=== PATIENT | female | born 2000 | race Caucasian/White ===

== ENCOUNTER 2020-07-29 17:44 | Observation (INO) | payer BC, OTHER ==
[~2020-07-29] VITALS: Ht 160 cm; Wt 65.5 kg
[2020-07-29 18:03] LABS: BILIRUBIN,URINE NEGATIVE (NEGATIVE); CLARITY,URINE CLEAR; COLOR,URINE YELLOW; GLUCOSE, URINE (UA) NEGATIVE (NEGATIVE); KETONES,URINE NEGATIVE (NEGATIVE); LEUKOCYTE ESTERASE ,URINE TRACE (NEGATIVE); NITRITE,URINE NEGATIVE (NEGATIVE); PROTEIN,URINE NEGATIVE (NEGATIVE)
[2020-07-29 18:07] LABS: BACTERIA,URINE FEW /HPF
[2020-07-29 18:08] LABS: BASOPHILS % (AUTO) 0 % (0-10); EOSINOPHILS # (AUTO) 0.1 10^3/uL (0.0-0.3); EOSINOPHILS % (AUTO) 1 % (0-10); HEMATOCRIT 39 % (35-52); HEMOGLOBIN 13.4 g/dL (11.5-16.0); LYMPHOCYTES # (AUTO) 2.2 10^3/uL (1.0-4.0); LYMPHOCYTES % (AUTO) 17 % (12-44); MEAN CORPUSCULAR HEMOGLOBIN 32 pg (25-34); MEAN CORPUSCULAR HGB CONC 35 g/dL (32-36); MEAN CORPUSCULAR VOLUME 92 fL (80-99); MEAN PLATELET VOLUME 9.1 fL (9.0-12.2); MONOCYTES # (AUTO) 0.7 10^3/uL (0.0-1.0); MONOCYTES % (AUTO) 5 % (0-12); NEUTROPHILS # (AUTO) 9.9 10^3/uL (1.8-7.8); NEUTROPHILS % (AUTO) 77 % (42-75); PLATELET COUNT 299 10^3/uL (130-400); WHITE BLOOD COUNT 12.9 10^3/uL (4.3-11.0)
--- NOTE | 2020-07-29 18:08 | ED Abdominal Pain ---
General Chief Complaint: Abdominal/GI Problems Stated Complaint: ABDOMINAL PAIN Source of Information: Patient Exam Limitations: No Limitations History of Present Illness Date Seen by Provider: Jul 29, 2020 Time Seen by Provider: 17:55 Initial Comments Patient presents ER by private conveyance with chief complaint of 5 days progressive abdominal pain starting at around her umbilicus and now migrating down the last day to her right lower quadrant. She had a UTI about a week ago and was treated with antibiotics and got over that. Her last vaginal. Starts today. She says the pain is consistent, 7 out of 10 but does not want anything for it. She took Tylenol for earlier today. She's not having any fevers or chills. No cough shortness of air. She went to the walk-in clinic today and they ran a urinalysis on her and told her that it was normal and insisted she come to the ER. Patient has no history of abdominal surgeries or medical history. No significant family medical history. She does not smoke drink or use drugs. Allergies and Home Medications Allergies Coded Allergies: No Known Drug Allergies (Unverified , 07/29/20) Patient Home Medication List Home Medication List Reviewed: Yes Review of Systems Review of Systems Constitutional: No chills, No fever EENTM: No Blurred Vision, No Double Vision Respiratory: Denies Cough, Denies Shortness of Air Cardiovascular: Denies Chest Pain, Denies Lightheadedness Gastrointestinal: Denies Abdominal Pain, Denies Constipated, Denies Diarrhea, Denies Nausea Genitourinary: Denies Burning, Denies Drainage Musculoskeletal: No back pain, No joint pain Skin: No change in color, No dryness Psychiatric/Neurological: Denies Anxiety, Denies Depressed All Other Systems Reviewed Negative Unless Noted: Yes Past Fldwaiz-Lcgpyq-Smajjt Hx Patient Social History Alcohol Use: Denies Use Recreational Drug Use: No Smoking Status: Never a Smoker Recent Foreign Travel: No Contact w/Someone Who Travel: No Physical Exam Vital Signs Vital Signs - First Documented 07/29/20 17:48 Temp 36.9 Pulse 95 Resp 18 B/P (MAP) 135/86 (102) Pulse Ox 98 Capillary Refill : Height/Weight/BMI Height: '" Weight: lbs. oz. kg; BMI Method: General Appearance: WD/WN, mild distress HEENT: PERRL/EOMI, pharynx normal Respiratory: no respiratory distress, no accessory muscle use Cardiovascular: normal peripheral pulses, regular rate, rhythm Peripheral Pulses: 2+ Radial Pulses (R), 2+ Radial Pulses (L) Gastrointestinal: normal bowel sounds, rebound, tenderness (right lower quadrant with rebound tenderness), other (or Rovsing sign positive, negative for Bueno's sign. McBurney's point tenderness. Right-sided psoa's tenderness on leg raise) Neurologic/Psychiatric: alert, normal mood/affect Skin: normal color, warm/dry Progress/Results/Core Measures Results/Orders Lab Results Laboratory Tests Test 07/29/20 17:57 07/29/20 18:00 Range/Units Urine Color YELLOW Urine Clarity CLEAR Urine pH 6.0 5-9 Urine Specific Colon 1.015 L 1.016-1.022 Urine Protein NEGATIVE NEGATIVE Urine Glucose (UA) NEGATIVE NEGATIVE Urine Ketones NEGATIVE NEGATIVE Urine Nitrite NEGATIVE NEGATIVE Urine Bilirubin NEGATIVE NEGATIVE Urine Urobilinogen 0.2 < = 1.0 MG/DL Urine Leukocyte Esterase TRACE H NEGATIVE Urine RBC (Auto) NEGATIVE NEGATIVE Urine RBC NONE /HPF Urine WBC 2-5 /HPF Urine Squamous Epithelial Cells 10-25 H /HPF Urine Crystals NONE /LPF Urine Bacteria FEW H /HPF Urine Casts NONE /LPF Urine Mucus NEGATIVE /LPF Urine Culture Indicated YES White Blood Count 12.9 H 4.3-11.0 10^3/uL Red Blood Count 4.20 3.80-5.11 10^6/uL Hemoglobin 13.4 11.5-16.0 g/dL Hematocrit 39 35-52 % Mean Corpuscular Volume 92 80-99 fL Mean Corpuscular Hemoglobin 32 25-34 pg Mean Corpuscular Hemoglobin Concent 35 32-36 g/dL Red Cell Distribution Width 11.7 10.0-14.5 % Platelet Count 299 130-400 10^3/uL Mean Platelet Volume 9.1 9.0-12.2 fL Immature Granulocyte % (Auto) 0 % Neutrophils (%) (Auto) 77 H 42-75 % Lymphocytes (%) (Auto) 17 12-44 % Monocytes (%) (Auto) 5 0-12 % Eosinophils (%) (Auto) 1 0-10 % Basophils (%) (Auto) 0 0-10 % Neutrophils # (Auto) 9.9 H 1.8-7.8 10^3/uL Lymphocytes # (Auto) 2.2 1.0-4.0 10^3/uL Monocytes # (Auto) 0.7 0.0-1.0 10^3/uL Eosinophils # (Auto) 0.1 0.0-0.3 10^3/uL Basophils # (Auto) 0.0 0.0-0.1 10^3/uL Immature Granulocyte # (Auto) 0.0 0.0-0.1 10^3/uL Sodium Level 139 135-145 MMOL/L Potassium Level 3.7 3.6-5.0 MMOL/L Chloride Level 105 98-107 MMOL/L Carbon Dioxide Level 20 L 21-32 MMOL/L Anion Gap 14 5-14 MMOL/L Blood Urea Nitrogen 9 7-18 MG/DL Creatinine 0.75 0.60-1.30 MG/DL Estimat Glomerular Filtration Rate > 60 BUN/Creatinine Ratio 12 Glucose Level 105 70-105 MG/DL Calcium Level 9.2 8.5-10.1 MG/DL Corrected Calcium 8.9 8.5-10.1 MG/DL Total Bilirubin 0.6 0.1-1.0 MG/DL Aspartate Amino Transf (AST/SGOT) 20 5-34 U/L Alanine Aminotransferase (ALT/SGPT) 17 0-55 U/L Alkaline Phosphatase 82 40-136 U/L Total Protein 7.9 6.4-8.2 GM/DL Albumin 4.4 3.2-4.5 GM/DL Serum Test, Qualitative NEGATIVE NEGATIVE My Orders Orders - CAL PUCKETT Ed Iv/Invasive Line Start (07/29/20 18:16) Lactated Ringers (Lr 1000 Ml Iv Solution (07/29/20 18:16) Iohexol Injection (Omnipaque 350 Mg/Ml 1 (07/29/20 18:30) Received Contrast (Hold Metformin- Contr (07/29/20 18:30) Ns (Ivpb) (Sodium Chloride 0.9% Ivpb Bag (07/29/20 18:30) Ciprofloxacin Iv 400mg/200ml (Cipro Iv S (07/29/20 19:00) Metronidazole 500mg/100ml Ivpb (Flagyl 5 (07/29/20 19:00) Blood Culture (07/29/20 18:56) Protime With Inr (07/29/20 18:56) Partial Thromboplastin Time (07/29/20 18:56) Medications Given in ED Current Medications Medications Dose Ordered Sig/Anitha Route Start Time Stop Time Status Last Admin Dose Admin Iohexol 100 ml ONCE ONCE IV 07/29/20 18:30 07/29/20 18:31 DC 07/29/20 18:36 87 ML Lactated Ringer's 1,000 ml @ 0 mls/hr Q0M ONCE IV 07/29/20 18:16 07/29/20 18:17 DC 07/29/20 18:45 1,000 MLS/HR Sodium Chloride 100 ml ONCE ONCE IV 07/29/20 18:30 07/29/20 18:31 DC 07/29/20 18:36 80 ML Vital Signs/I&O 07/29/20 17:48 Temp 36.9 Pulse 95 Resp 18 B/P (MAP) 135/86 (102) Pulse Ox 98 Progress Progress Note : Time: 18:10 Progress Note Suspicion for appendicitis, colitis, mesenteric adenitis, gynecologic follicular cyst etc. liter of lactated Ringer's, CT with IV contrast of the abdomen and pelvis. The patient declines anything for pain this time. Diagnostic Imaging Diagonstic Imaging: CT Plain Films/CT/US/NM/MRI: abdomen, pelvis Comments NAME: MITCHELL KAMARA [facility] REC#: [id number] PT STATUS: REG ER : 2000 PHYSICIAN: ROSA GAMBINO APRN ADMIT DATE: 07/29/20/ER Draft Date of Exam:07/29/20 CT ABD/PELV W (APPENDICITIS) EXAMINATION: CT abdomen and pelvis with intravenous contrast. TECHNIQUE: Multiple contiguous axial images were obtained through the abdomen and pelvis after the uneventful administration of intravenous contrast. All CT scans use one or more of the following dose optimizing techniques: automated exposure control, MA and/or KvP adjustment based on patient size and exam type or iterative reconstruction. HISTORY: Abdominal pain. COMPARISON: None available. FINDINGS: The heart is unremarkable. The included lung bases are clear. The liver, spleen, pancreas, adrenal glands, and kidneys have a normal appearance. There is no pathologically enlarged mesenteric or retroperitoneal adenopathy. The bowel loops are nondilated. The appendix is dilated and fluid-filled measuring 1.8 cm. An appendicolith is seen in the neck of the appendix. Surrounding free fluid is noted in the right paracolic gutter. No loculated collection is seen. There is no free fluid or free air. No acute osseous abnormalities. Ureters and bladder are grossly normal. There is no free air, loculated collection, or adenopathy in the pelvis. IMPRESSION: Acute appendicitis with a small amount of free fluid in the right paracolic gutter. No evidence of abscess or free air. No bowel obstruction. Dictated on workstation # [id number] Dict: 07/29/20 1842 Trans: 07/29/201849 [facility] [id number] Interpreted by: JAMAL IGNACIO DO Electronically signed by: Reviewed: Reviewed by Me Departure Communication (Admissions) Time/Spoke to Admitting Phy: 18:45 Discussed the case with Dr. Cruz, general surgery and he agrees to observe the patient overnight on a clear liquid diet until 2:00 in the morning then nothing by mouth. He would like Cipro and Flagyl. Impression Primary Impression: Appendicitis Qualified Codes: K35.30 - Acute appendicitis with localized peritonitis, without perforation or gangrene Disposition: ADMITTED INPATIENT Condition: Stable Admissions Decision to Admit Reason: Admit from ER (General) Decision to Admit/Date: Jul 29, 2020 Time/Decision to Admit Time: 18:47 CAL PUCKETT Jul 29, 2020 18:08
[2020-07-29] MEDS ORDERED: LACTATED RINGERS 1,000 ML IV ONE ×2 (18:16→22:31)
[2020-07-29 18:22] LABS: ALBUMIN 4.4 GM/DL (3.2-4.5)
[2020-07-29 18:23] LABS: CHLORIDE 105 MMOL/L (98-107); POTASSIUM 3.7 MMOL/L (3.6-5.0); SODIUM 139 MMOL/L (135-145)
[2020-07-29 18:24] LABS: CALCIUM 9.2 MG/DL (8.5-10.1)
[2020-07-29 18:25] LABS: GLUCOSE 105 MG/DL (70-105); TOTAL PROTEIN 7.9 GM/DL (6.4-8.2)
[2020-07-29 18:26] LABS: CARBON DIOXIDE 20 MMOL/L (21-32)
[2020-07-29 18:27] LABS: BILIRUBIN,TOTAL 0.6 MG/DL (0.1-1.0)
[2020-07-29 18:28] LABS: ALKALINE PHOSPHATASE 82 U/L (40-136)
[2020-07-29 18:29] LABS: CREATININE SERUM 0.75 MG/DL (0.60-1.30); GFR ESTIMATED > 60
[2020-07-29 18:30] LABS: BUN/CREATININE RATIO 12
[2020-07-29] MEDS ORDERED: NS 100 ML (IVPB) BAG IV ONE (18:30)
[2020-07-29] MEDS ORDERED: HOLD METFORMIN - RECEIVED CONTRAST 20 ML VIAL IV SCH (18:30)
[2020-07-29] MEDS ORDERED: IOHEXOL 350 MG/ML 100 ML (OMNIPAQUE 350) VIAL IV ONE (18:30)
[2020-07-29 18:31] LABS: ALANINE AMINOTRANSFERASE 17 U/L (0-55)
--- NOTE | 2020-07-29 18:50 | Diagnostic Imaging Report ---
EXAMINATION: CT abdomen and pelvis with intravenous contrast. TECHNIQUE: Multiple contiguous axial images were obtained through the abdomen and pelvis after the uneventful administration of intravenous contrast. All CT scans use one or more of the following dose optimizing techniques: automated exposure control, MA and/or KvP adjustment based on patient size and exam type or iterative reconstruction. HISTORY: Abdominal pain. COMPARISON: None available. FINDINGS: The heart is unremarkable. The included lung bases are clear. The liver, spleen, pancreas, adrenal glands, and kidneys have a normal appearance. There is no pathologically enlarged mesenteric or retroperitoneal adenopathy. The bowel loops are nondilated. The appendix is dilated and fluid-filled measuring 1.8 cm. An appendicolith is seen in the neck of the appendix. Surrounding free fluid is noted in the right paracolic gutter. No loculated collection is seen. There is no free fluid or free air. No acute osseous abnormalities. Ureters and bladder are grossly normal. There is no free air, loculated collection, or adenopathy in the pelvis. IMPRESSION: Acute appendicitis with a small amount of free fluid in the right paracolic gutter. No evidence of abscess or free air. No bowel obstruction. Dictated by: Dictated on workstation # [id number]
[2020-07-29] MEDS ORDERED: metroNIDAZOLE 500MG/100ML IVPB 100 ML IV ONE (19:00)
[2020-07-29] MEDS ORDERED: CIPROFLOXACIN IV 400MG/200ML 200 ML IV ONE (19:00)
[2020-07-29 19:07] LABS: INR 0.9 (0.8-1.4); PROTHROMBIN TIME PATIENT 12.5 SEC (12.2-14.7)
--- NOTE | 2020-07-29 20:32 | Progress Note-Pre Operative ---
Pre-Operative Progress Note H&P Reviewed The H&P was reviewed, patient examined and no changes noted. Date Seen by Provider: Jul 29, 2020 Time Seen by Provider: 18:30 Date H&P Reviewed: Jul 29, 2020 Time H&P Reviewed: 18:30 Pre-Operative Diagnosis: acute appenditis ANTONIETA FERRARO MD Jul 29, 2020 20:32
--- NOTE | 2020-07-29 21:00 | HISTORY AND PHYSICAL ---
DATE OF SERVICE: HISTORY OF PRESENT ILLNESS: The patient is a 19-year-old female, who presented to [facility] Emergency Department with a 5-day history of abdominal pain. She reports that the pain was periumbilical initially; however, became more localized towards the right lower abdominal quadrant. She does not report any nausea, no vomiting as well as no diarrhea or constipation. She also does not report any fever or chills. A CT scan was performed, which did show appendicitis; however, no perforation. PAST MEDICAL HISTORY: Urinary tract infection. PAST SURGICAL HISTORY: None. ALLERGIES: No known drug allergies. MEDICATIONS: None. SOCIAL HISTORY: Negative smoke, negative alcohol. FAMILY HISTORY: Noncontributory. VITAL SIGNS: Temperature 36.9, blood pressure 135/86, pulse 95, respirations 18, pulse ox 93% on room air. REVIEW OF SYSTEMS: Well-nourished female, currently guarded secondary to abdominal pain. She is not experiencing any shortness of breath or difficulty breathing as well as no cough or sputum production. No nausea or vomiting. No chest pain, palpitations or diaphoresis. No diarrhea or constipation. No red blood per rectum, no dark tarry stools. No fever, chills, no recent inadvertent weight loss. All other review of systems negative. PHYSICAL EXAMINATION: CHEST: Clear. Good breath sounds bilaterally. HEART: Regular, no murmurs. EXTREMITIES: No lower extremity edema, negative Homans sign. HEENT: No scleral icterus. NECK: No cervical lymphadenopathy. ABDOMEN: Soft, nondistended. There is pain in the right lower abdominal quadrant at McBurney's point with voluntary guarding, no rebound. SKIN: Warm, dry. LABORATORY DATA: WBC 12.9, hemoglobin 13.4, hematocrit 39, platelets 299. Urinalysis positive for trace leukocyte esterase as well as bacteria. ASSESSMENT AND PLAN: A 19-year-old female with acute appendicitis. We will start IV antibiotics as well as fluid hydration as well as adequate pain control and proceed with laparoscopic appendectomy on this admission. Job ID: [id number] DocumentID: [id number] Dictated Date: 07/29/2020 20:51:31 Veneer Taping Machine Offbearer Date: 07/29/2020 20:59:43 Dictated By: ANTONIETA FERRARO MD
[2020-07-29 22:30] VITALS: BP 131/85
[2020-07-29] MEDS ORDERED: fentaNYL INJECTION 100 MCG/2 ML AMP IV PRN ×2 (23:00)
[2020-07-29] MEDS ORDERED: ACETAMINOPHEN 325 MG TABLET PO PRN (23:00)
[2020-07-29] MEDS ORDERED: ACETAMINOPHEN 650 MG SUPP (TYLENOL) PR PRN (23:00)
[2020-07-29] MEDS ORDERED: KETOROLAC 15 MG/ML VIAL IV PRN (23:00)
[2020-07-29] MEDS ORDERED: ONDANSETRON 4 MG/2 ML (SDV) Z0FRAN IVP PRN (23:00)
[2020-07-29] MEDS: LACTATED RINGERS 1,000 ML IV SCH (23:05)
[2020-07-30] VITALS (11 sets, daily range): BP systolic 107–143; BP diastolic 66–85
[2020-07-30] MEDS ORDERED: LACTATED RINGERS 1,000 ML IV PRN (07:01)
[2020-07-30 07:08] LABS: BASOPHILS % (AUTO) 0 % (0-10); EOSINOPHILS # (AUTO) 0.1 10^3/uL (0.0-0.3); EOSINOPHILS % (AUTO) 1 % (0-10); HEMATOCRIT 34 % (35-52); HEMOGLOBIN 11.5 g/dL (11.5-16.0); LYMPHOCYTES # (AUTO) 3.3 10^3/uL (1.0-4.0); LYMPHOCYTES % (AUTO) 31 % (12-44); MEAN CORPUSCULAR HEMOGLOBIN 32 pg (25-34); MEAN CORPUSCULAR HGB CONC 34 g/dL (32-36); MEAN CORPUSCULAR VOLUME 93 fL (80-99); MEAN PLATELET VOLUME 9.3 fL (9.0-12.2); MONOCYTES # (AUTO) 0.8 10^3/uL (0.0-1.0); MONOCYTES % (AUTO) 8 % (0-12); NEUTROPHILS # (AUTO) 6.4 10^3/uL (1.8-7.8); NEUTROPHILS % (AUTO) 60 % (42-75); PLATELET COUNT 251 10^3/uL (130-400); WHITE BLOOD COUNT 10.7 10^3/uL (4.3-11.0)
[2020-07-30] MEDS ORDERED: FLU QUADRIvalent (3YOA+) 60 mcg/0.5 ml 2020-21 (AFLURIA) IM ONE (07:15)
[2020-07-30 07:30] LABS: ALANINE AMINOTRANSFERASE 14 U/L (0-55); ALBUMIN 3.5 GM/DL (3.2-4.5); ALKALINE PHOSPHATASE 70 U/L (40-136); BILIRUBIN,TOTAL 0.7 MG/DL (0.1-1.0); BUN/CREATININE RATIO 9; CALCIUM 8.4 MG/DL (8.5-10.1); CARBON DIOXIDE 22 MMOL/L (21-32); CHLORIDE 108 MMOL/L (98-107); CREATININE SERUM 0.67 MG/DL (0.60-1.30); GFR ESTIMATED > 60; GLUCOSE 97 MG/DL (70-105); POTASSIUM 3.6 MMOL/L (3.6-5.0); SODIUM 140 MMOL/L (135-145); TOTAL PROTEIN 6.1 GM/DL (6.4-8.2)
[2020-07-30] MEDS: LACTATED RINGERS 1,000 ML IV SCH (07:44)
[2020-07-30] MEDS ORDERED: PANTOPRAZOLE 40 MG (PROTONIX) VIAL IV SCH (09:00)
--- NOTE | 2020-07-30 10:23 | NUR ---
DR. FERRARO AT PT BEDSIDE.
[2020-07-30] MEDS ORDERED: BUP/EPI 0.25% 1:200,000 (MARCAINE) 30 ML VIAL ONE (10:29)
--- NOTE | 2020-07-30 10:38 | NUR ---
PT TRANSPORTED TO OR VIA PT BED BY LITZY HOLDER.
[2020-07-30] MEDS ORDERED: MIDAZOLAM 2 MG/2 ML (VERSED) VIAL ONE (10:45)
[2020-07-30] MEDS ORDERED: fentaNYL INJECTION 100 MCG/2 ML AMP ONE (10:45)
[2020-07-30] MEDS ORDERED: ceFAZolin INJECTION 1,000 MG VIAL IV ONE (11:00)
[2020-07-30] MEDS ORDERED: proPOfol 200 MG/20 ML (DIPRIVAN) VIAL IV ONE (11:33)
[2020-07-30] MEDS ORDERED: ONDANSETRON 4 MG/2 ML (SDV) Z0FRAN ONE (11:33)
[2020-07-30] MEDS ORDERED: LIDOCAINE PF 2% 5 ML (XYLOCAINE) VIAL ONE (11:33)
[2020-07-30] MEDS ORDERED: ROCURONIUM 10 MG/ML 5 ML SYRINGE IV ONE (11:33)
[2020-07-30] MEDS ORDERED: SEVOFLURANE (ULTANE) 15 ML INHAL SOLN ONE (11:33)
[2020-07-30] MEDS ORDERED: morphine INJ 10 MG/ML 1ML (SYR OR VIAL) ONE (11:34)
--- NOTE | 2020-07-30 11:45 | Progress Note-Post Operative ---
Post-Operative Progess Note Surgeon (s)/Resident Engineer (s) Surgeon ANTONIETA FERRARO MD Resident Engineer: max joy LACE BURN OUT TENDER Pre-Operative Diagnosis acute appenditis Post-Operative Diagnosis same Procedure & Operative Findings Date of Procedure 07/30/20 Procedure Performed/Findings laparoscopic appendectomy. Anesthesia Type get Estimated Blood Loss Estimated blood loss (mL): minimal Specimens/Packing Specimens Removed appendix ANTONIETA FERRARO MD Jul 30, 2020 11:45
[2020-07-30] MEDS ORDERED: ACHD5005 PO (11:54)
--- NOTE | 2020-07-30 11:54 | Discharge Inst-Surgical ---
D/C Lap Instructions-JASMINE New, Converted, or Re-Newed RX: RX on Chart Follow Up Appt in 2 weeks Activity as tolerated No driving for 24 hours No [address] while on pain medications Incentive Spirometry use every 2 hours while awake Regular Diet Symptoms to Report: Fever over 101 degree F, Nausea/Vomiting Infection Signs and Symptoms to report: Increased redness, Foul odor of wound, Increased drainage Bathing instructions: May shower Operative Area Clean/Dry; Keep incision clean/dry If any problems/questions: Contact your physician or go to Emergency Room ANTONIETA FERRARO MD Jul 30, 2020 11:54
[2020-07-30] MEDS ORDERED: HYDROcodone/APAP 7.5 MG/325 MG (LORTAB, LORCET PLUS) TABLET PO PRN (12:00)
[2020-07-30] MEDS ORDERED: HYDROmorphone 2 MG/ML VIAL (DILAUDID) ONE (12:21)
--- NOTE | 2020-07-30 12:50 | NUR ---
PT TRANSPORTED BACK TO ROOM 511. REPORT RECEIVED FROM LITZY SCHULZ.
--- NOTE | 2020-07-30 16:48 | NUR ---
MITCHELL KAMARA demonstrates understanding of discharge instructions and accurately returns instructions upon questioning. Copy of Post-Discharge Instructions given to MITCHELL KAMARA. MITCHELL KAMARA is able to manage continuing needs after discharge. Patients belongings returned to MITCHELL KAMARA. Patient discharged from [facility] on 07/30/20 at 1648. MITCHELL KAMARA left floor via WHEELCHAIR, accompanied by PT'S MOTHER AND ROGER CORREA.
--- NOTE | 2020-07-30 21:56 | OPERATIVE REPORT ---
DATE OF SERVICE: 07/30/2020 PREOPERATIVE DIAGNOSIS: Acute appendicitis. POSTOPERATIVE DIAGNOSIS: Acute appendicitis with no perforation. PROCEDURE PERFORMED: Laparoscopic appendectomy. SURGEON: Antonieta Ferraro MD GENERAL UTILITY MAINTENANCE REPAIRER: Yannick Wright APRN. ANESTHESIA: General endotracheal. ESTIMATED BLOOD LOSS: Minimal. FINDINGS: Acute appendicitis with no perforation. DISPOSITION: The patient tolerated the procedure well. INDICATIONS: The patient is a 19-year-old female who presented to [facility] Emergency Department with a 5-day history of abdominal pain. She states that this was initially mild and then went away; however, the pain became more severe as well as more localized towards the right lower abdominal quadrant. She does report some nausea; however, no vomiting. A CT scan was performed, which did show appendicitis; however, no perforation. DESCRIPTION OF PROCEDURE: The patient was brought to the operating room, laid supine on the table. After adequate IV pain and sedative medications and general endotracheal intubation, the abdomen was prepped and draped in standard surgical fashion. A 0.5% Marcaine with epinephrine was used to anesthetize overlying skin in the left upper abdominal quadrant and a transverse skin incision made using a 15-blade. An #0 silk suture was applied to the medial aspect incision for traction and a Veress needle inserted with a low opening pressure of 0 mmHg. The abdomen was then insufflated to 15 mmHg pressure. The Veress needle removed and a 5 mm XCEL trocar placed followed by a 5 mm 45-degree angle laparoscope visualizing the peritoneal cavity. A 4-quadrant abdominal exploration was performed. The uterus and ovary appeared normal. There was no Meckel diverticulum. The appendix was inflamed with no perforation. Under direct visualization, we then proceeded to place a supraumbilical 10 mm port and in a similar manner, a suprapubic 5 mm port was placed. The patient was then placed in Trendelenburg position as well as plane right side up, left side down. The appendix was then bluntly dissected from the omentum as well as the abdominal wall. The appendix was then retracted towards the anterior abdominal wall and a window was created between the base of the appendix and the mesoappendix using a [place] dissector. The appendix was then stapled and transected using a NESHA 45 mm stapler with a 2.5 mm thickness load. The mesoappendix was then stapled and transected with the same stapler with a 2.0 mm thickness reload. Good hemostasis was observed. The appendix was removed through the 10 mm port site using an EndoCatch bag. The area was then copiously irrigated and suctioned out. The 10 mm port site fascia and peritoneum were then closed under direct visualization using a Kb-Omkar device and a #0 Vicryl suture. The abdomen was then desufflated and remaining ports removed. All skin incisions were closed using 4-0 Monocryl running subcuticular sutures. Wounds were then cleaned and covered with Dermabond. The patient tolerated the procedure well. We will start IV and oral pain medication as well as a clear liquid diet. Once she is tolerating clears, has good pain control with oral pain medications and ambulating well, we will discharge her home. Job ID: [id number] DocumentID: [id number] Dictated Date: 07/30/2020 11:51:27 Cell Liner Date: 07/30/2020 21:56:06 Dictated By: ANTONIETA FERRARO MD
--- NOTE | 2020-07-31 15:42 | Anesthesia-General Post-Op ---
General Patient Condition Mental Status/LOC: Same as Preop Cardiovascular: Satisfactory Nausea/Vomiting: Absent Respiratory: Satisfactory Pain: Controlled Complications: Absent Post Op Complications Complications None Follow Up Care/Instructions Patient Instructions None needed. Anesthesia/Patient Condition Patient Condition Patient was doing well, no complaints, stable vital signs, no apparent adverse anesthesia problems. No complications reported per nursing, thus patient was discharged to home around 1645. XOCHILT AMBRIZ CRNA Jul 31, 2020 15:42
== END 2020-07-30 16:48 | disposition home or self-care (01) ==
LOC: ER 17:46 → CSD 19:00
PROVIDERS: ADMIT Surgery; ATTEND Surgery
DX: K35.80 Unspecified acute appendicitis (principal)
CPT/HCPCS: 36415; 74177; 80053; 81000; 84703; 85025; 85610; 85730; 87040; 87088; 88304; 96361; 96365; 96367